=== PATIENT | female | born 1985 | race African-American/Black ===

== ENCOUNTER 2016-10-21 10:10 | Day surgery (SDC) | payer BC ==
[2016-10-19 12:23] VITALS: BMI 29.5
[2016-10-21 10:49] VITALS: TEMP 98.2
--- NOTE | 2016-10-21 12:21 | HP ---
History & Physical Update - History Currently as noted:: Painful left 5th toe when walking - Physical Currently as noted:: Exostosis Left 5th toe - Plan Currently as noted:: Condylectomy left 5th toe
[2016-10-21] MEDS ORDERED: MIDAZOLAM HCL 2 MG/2 ML SINGLE DOSE VIAL ONE ×2 (12:58→13:14)
[2016-10-21] MEDS ORDERED: PROPOFOL 20 ML ONE ×3 (12:58→13:31)
[2016-10-21] MEDS ORDERED: LIDOCAINE HCL 1%, 10 MG/ML (20ML VIAL) ONE (13:03)
[2016-10-21] MEDS ORDERED: BUPIVACAINE HCL/PF 0.5% (5MG/ML) 10 ML VIAL ONE (13:03)
[2016-10-21] MEDS ORDERED: ceFAZolin SODIUM 1 GM VIAL ONE (13:20)
[2016-10-21] MEDS ORDERED: ceFAZolin SODIUM 1 GM VIAL IVPB ONE (13:22)
[2016-10-21] MEDS ORDERED: LIDOCAINE HCL 1%, 10 MG/ML (20ML VIAL) IJ ONE (13:32)
[2016-10-21] MEDS ORDERED: BUPIVACAINE HCL/PF 0.5% (5MG/ML) 10 ML VIAL IJ ONE (13:32)
[2016-10-21] MEDS ORDERED: DEXAMETHASONE SOD PHOSPHATE 4 MG/1 ML VIAL ONE (13:56)
[2016-10-21] MEDS ORDERED: DEXAMETHASONE SOD PHOSPHATE 4 MG/1 ML VIAL NR ONE (14:00)
--- NOTE | 2016-10-21 14:18 | OP ---
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
[2016-10-21 15:58] VITALS: BP 119/57; PULSE 87
--- NOTE | 2016-10-23 13:59 | PATH ---
Surgical Pathology Report Patient Name: ASHLY TELLEZ [facility]. Rec. #: [id number] /Age/Gender: 1985 (Age: 31) / F Account: [id number] Location: [facility] SUR[facility]ICAL Taken: 10/21/2016 Received: 10/22/2016 Reported: 10/23/2016 Physicians: Julianne Greene DPM Specimen(s) Received A: SOFT TISSUE B: LEFT FOOT BONE Clinical History Exostosis Final Diagnosis A. SKIN, SITE NOT SPECIFIED, EXCISION: BENIGN SKIN WITH HYPERKERATOSIS AND FOCAL PARAKERATOSIS. B. BONE, LEFT FOOT, EXCISION: BONE WITH REACTIVE CHANGES. Electronically Signed Darrick Smith M.D. Gross Description A. Received in formalin, labeled "soft tissue," is a 0.9 x 0.4 cm green, elliptical, unoriented portion of skin excised to a depth of 0.3 cm. The epidermal surface is grossly unremarkable. The specimen is trisected and entirely submitted in one cassette. B. Received in formalin, labeled "left foot bone," is a 0.5 x 0.4 x 0.2 cm green, irregular bone fragment. The specimen is submitted in toto in one cassette, following decalcification. 10/22/201610/22/2016
--- NOTE | 2016-12-22 18:16 | OP ---
DATE OF OPERATION: 10/21/2016 SURGEON: Julianne Greene DPM BURLAPPER: Dr. Bi Zimmer ANESTHESIOLOGIST: Tj Gomez D.O. PREOPERATIVE DIAGNOSIS: Exostosis left 5th toe. POSTOPERATIVE DIAGNOSIS: Exostosis left 5th toe. OPERATIVE PROCEDURE: Exostectomy left 5th toe. PATHOLOGY: Bone. ANESTHESIA: Local with IV sedation. HEMOSTASIS: Pneumatic ankle tourniquet. ESTIMATED BLOOD LOSS: 1 mL. MATERIALS: None. COMPLICATIONS: None. OPERATIVE PROCEDURE: The patient was brought to the operating room and placed on the operating table in the supine position. A pneumatic ankle tourniquet was then placed on the patient's left ankle. Following IV sedation, local anesthesia was obtained utilizing 5 mL of a 1:1 mixture of 45% Marcaine plain and 1% lidocaine plain. The foot was then scrubbed, prepped, and draped in the usual aseptic manner. An Esmarch bandage was then utilized to exsanguinate the patient's left foot, and the tourniquet was inflated. Attention was directed to the 5th digit, where a 1.5 cm semi-elliptical incision was made along the distal lateral aspect of the left 5th toe. The incision was then deepened through the subcutaneous tissues with care to retract all vital neurovascular structures. Ellipse was removed with sharp and blunt dissection. All bleeders were ligated and cauterized. The incision was deepened to the level of the exostosis. The exostosis was then freed of its soft tissue attachments. It was noted that the base of the distal phalanx and the head of the middle phalanx were fused. A double action bone cutter was then used to resect the exostosis present at the lateral aspect of the distal and middle phalanx. The bone was then passed from the operative field. The phalanx was then smoothed of its rough edges with a bone rasp. The wound was then flushed with copious amounts of sterile saline. The subcutaneous tissues were closed with 4-0 Vicryl, and the skin was reapproximated with 4-0 nylon. Upon completion of the procedure, a total of 2 mL of a 5:1 mixture of 0.5% Marcaine plain and 1 mg Decadron was infiltrated around the surgical site. The incision was dressed with Betadine soaked Adaptic and covered with sterile compressive dressings such as 4x4s, and Iveth. The tourniquet was then deflated. An immediate hyperemia returned to all digits. The foot was then wrapped with Coban. The patient tolerated the procedure well and was transferred to the recovery room with all vital signs stable and vascular status intact to the feet. Following postoperative monitoring, patient will be discharged and given instructions which were discussed prior to the surgery. SOFIA PHILLIP/[id number]
== END 2016-10-21 16:03 | disposition home or self-care (01) ==
LOC: JASU-SURG 10:10
PROVIDERS: ATTEND Podiatrist Foot Surgery
PROC: 0QBR0ZZ Excision of Left Toe Phalanx, Open Approach (ICD-10-PCS; principal; 2016-10-21 12:00)
DX: M89.9 Disorder of bone, unspecified (principal)
CPT/HCPCS: 73630-TC-LT; 84703; 88304-TC; 88311-TC; 97116-GP

== ENCOUNTER 2021-07-17 23:40 | Emergency (ER) | payer BC ==
[2021-07-18 00:01] VITALS: TEMP 98.4; BMI 29.9
[2021-07-18] MEDS ORDERED: ACETAMINOPHEN 500 MG TABLET (FP) PO ONE (00:31)
[2021-07-18] MEDS ORDERED: KETOROLAC TROMETHAMINE 15 MG/ML VIAL IVPUSH ONE (00:31)
[2021-07-18] MEDS ORDERED: SODIUM CHLORIDE 0.9% 500 ML INFUS.BAG IV ONE (00:32)
[2021-07-18] MEDS ORDERED: diphenhydrAMINE HCL 25 MG CAPSULE (FP) PO ONE ×2 (00:32→00:49)
[2021-07-18] MEDS ORDERED: METOCLOPRAMIDE HCL INJECTION 10 MG/2 ML VIAL IVPUSH ONE (00:32)
[2021-07-18] MEDS ORDERED: ACETAMINOPHEN 325 MG TABLET (FP) ONE (00:48)
[2021-07-18] MEDS ORDERED: METOCLOPRAMIDE HCL INJECTION 10 MG/2 ML VIAL ONE (00:49)
[2021-07-18] MEDS ORDERED: KETOROLAC TROMETHAMINE 15 MG/ML VIAL ONE (00:49)
[2021-07-18 02:56] VITALS: BP 117/71; PULSE 84
== END 2021-07-18 02:56 | disposition home or self-care (01) ==
LOC: JER 23:40
PROC: 3E0333Z Introduction of Anti-inflammatory into Peripheral Vein, Percutaneous Approach (ICD-10-PCS; principal; 2021-07-18)
PROC: 3E033NZ Introduction of Analgesics, Hypnotics, Sedatives into Peripheral Vein, Percutaneous Approach (ICD-10-PCS; 2021-07-18)
DX: R51.9 Headache, unspecified (principal)
CPT/HCPCS: 70450-TC; 84703; 99285-25

== ENCOUNTER 2023-08-27 20:53 | Inpatient (IN) | payer BC ==
[2023-08-27] MEDS ORDERED: MAG HYDROX/AL HYDROX/SIMETH 30 ML UNIT-DOSE CUP ONE (22:30)
[2023-08-27] MEDS ORDERED: FAMOTIDINE 20 MG/50 ML IVPB 20 MG/50 ML MG IVPB ONE (22:30)
[2023-08-27] MEDS ORDERED: ACETAMINOPHEN INJECTION 100 ML IVPB ONE (22:30)
[2023-08-27] MEDS: ACETAMINOPHEN 1000 MG/100 ML BAG IVPB ONE (22:33)
[2023-08-27] MEDS: FAMOTIDINE 20 MG/50 ML IVPB 20 MG/50 ML MG IVPB ONE (22:33)
[2023-08-27] MEDS: MAG HYDROX/AL HYDROX/SIMETH 30 ML UNIT-DOSE CUP PO ONE (22:33)
[2023-08-27 22:35] LABS: BASO % 0.7 % (0-2.0); EOS % 1.4 % (0-4.5); HEMATOCRIT 38.2 % (32.4-45.2); HEMOGLOBIN 12.8 GM/dL (10.7-15.3); LYMPH % 31.7 % (8-40); MCH 29.5 pg (25.7-33.7); MCHC 33.4 g/dl (32.0-36.0); MEAN CELL VOLUME 88.2 fl (80-96); MONO % 6.5 % (3.8-10.2); NEUT % 59.7 % (42.8-82.8); PLATELET COUNT 235 10^3/uL (134-434); RBC 4.33 M/mm3 (3.60-5.2); RDW 13.7 % (11.6-15.6); WHITE BLOOD COUNT 9.5 K/mm3 (4.0-10.0)
[2023-08-27 22:41] LABS: INR 0.95 (0.83-1.09)
[2023-08-27 22:44] LABS: ACTIVATED PTT 30.5 SECONDS (25.2-36.5)
[2023-08-27 23:00] LABS: POTASSIUM 4.3 mmol/L (3.5-5.1)
[2023-08-27 23:02] LABS: ALBUMIN 3.6 g/dl (3.4-5.0); CALCIUM 9.5 mg/dL (8.5-10.1)
[2023-08-27 23:03] LABS: BLOOD UREA NITROGEN 8.6 mg/dL (7-18)
[2023-08-27 23:06] LABS: CREATININE 0.9 mg/dL (0.55-1.3)
[2023-08-27 23:07] LABS: BILIRUBIN,TOTAL 0.4 mg/dL (0.2-1); TOT PROT 7.2 g/dl (6.4-8.2)
[2023-08-28] MEDS: LACTATED RINGERS SOLUTION 1,000 ML/1,000 ML INFUS.BAG IV SCH (01:23)
[2023-08-28 08:08] LABS: BASO % 0.9 % (0-2.0); EOS % 1.6 % (0-4.5); HEMATOCRIT 38.1 % (32.4-45.2); HEMOGLOBIN 12.5 GM/dL (10.7-15.3); LYMPH % 33.4 % (8-40); MCH 29.2 pg (25.7-33.7); MCHC 32.7 g/dl (32.0-36.0); MEAN CELL VOLUME 89.2 fl (80-96); MONO % 7.4 % (3.8-10.2); NEUT % 56.7 % (42.8-82.8); PLATELET COUNT 210 10^3/uL (134-434); RBC 4.27 M/mm3 (3.60-5.2); RDW 13.4 % (11.6-15.6); WHITE BLOOD COUNT 7.5 K/mm3 (4.0-10.0)
[2023-08-28 08:23] LABS: POTASSIUM 3.9 mmol/L (3.5-5.1)
[2023-08-28 08:29] LABS: ALBUMIN 3.3 g/dl (3.4-5.0); CALCIUM 9.2 mg/dL (8.5-10.1)
[2023-08-28 08:30] LABS: BLOOD UREA NITROGEN 6.6 mg/dL (7-18); MAGNESIUM 2.1 mg/dL (1.8-2.4)
[2023-08-28 08:32] LABS: CREATININE 0.9 mg/dL (0.55-1.3); PHOSPHOROUS 3.3 mg/dL (2.5-4.9)
[2023-08-28 08:33] LABS: BILIRUBIN,TOTAL 0.6 mg/dL (0.2-1)
[2023-08-28 08:34] LABS: TOT PROT 6.4 g/dl (6.4-8.2)
[2023-08-28 09:06] LABS: INR 1.02 (0.83-1.09); PROTHROMBIN TIME (PATIENT) 11.8 SEC (9.7-13.0)
[2023-08-28] MEDS ORDERED: MIDAZOLAM HCL 2 MG/2 ML SINGLE DOSE VIAL ONE (17:05)
[2023-08-28] MEDS ORDERED: PROMETHAZINE HCL 25 MG/1 ML VIAL IVPB PRN (17:29)
[2023-08-28] MEDS ORDERED: ONDANSETRON 4 MG/2 ML VIAL IVPUSH PRN (17:29)
[2023-08-28] MEDS ORDERED: LACTATED RINGERS SOLUTION 1,000 ML IV SCH (17:30)
[2023-08-29 08:20] LABS: BASO % 0.6 % (0-2.0); EOS % 1.5 % (0-4.5); HEMOGLOBIN 12.5 GM/dL (10.7-15.3); LYMPH % 29.4 % (8-40); MCH 28.9 pg (25.7-33.7); MCHC 32.9 g/dl (32.0-36.0); MEAN PLT VOLUME 8.9 fl (7.5-11.1); MONO % 7.2 % (3.8-10.2); NEUT % 61.3 % (42.8-82.8); PLATELET COUNT 231 10^3/uL (134-434); RBC 4.32 M/mm3 (3.60-5.2); RDW 13.4 % (11.6-15.6); WHITE BLOOD COUNT 6.6 K/mm3 (4.0-10.0)
[2023-08-29 08:25] LABS: CALCIUM 9.2 mg/dL (8.5-10.1)
[2023-08-29 08:26] LABS: ALBUMIN 3.3 g/dl (3.4-5.0); BLOOD UREA NITROGEN 7.2 mg/dL (7-18)
[2023-08-29 08:29] LABS: CREATININE 0.8 mg/dL (0.55-1.3)
[2023-08-29 08:30] LABS: BILIRUBIN,TOTAL 0.8 mg/dL (0.2-1)
[2023-08-29 08:31] LABS: TOT PROT 6.3 g/dl (6.4-8.2)
[2023-08-29 14:13] VITALS: BP 123/76; PULSE 104; RESP 20; TEMP 98.4
[2023-08-29 16:13] VITALS: BMI 32.3
== END 2023-08-29 16:05 | disposition home or self-care (01) | DRG 392 ==
LOC: JER 20:53 → JERBED 23:25 → J7W 08-28 02:21
PROVIDERS: ADMIT Internal Medicine
PROC: 0DB58ZX Excision of Esophagus, Via Natural or Artificial Opening Endoscopic, Diagnostic (ICD-10-PCS; principal; 2023-08-28 16:30)
DX: K20.0 Eosinophilic esophagitis (principal); R13.10 Dysphagia, unspecified
CPT/HCPCS: 0241U-QW; 36415; 71046-TC-FY; 80053; 83690; 83735; 84100; 84484; 84703; 85025; 85610; 85730; 88305-TC; 93005; 93010; 99285-25; G0378; J0131